=== PATIENT | female | born 1950 | race Caucasian/White ===

== ENCOUNTER 2017-02-26 09:51 | Outpatient (CLI) | payer MEDICARE, OTHER ==
--- NOTE | 2017-02-27 11:42 | Mammography Report ---
DIGITAL BILATERAL SCREENING MAMMOGRAM: 02/26/2017 CLINICAL HISTORY: A 66-year-old female in for routine screening mammogram. The patient has no family history of breast cancer. The patient has had no prior breast surgeries. COMPARISON: 05/17/2007, 11/29/2008, 09/28/2010, 09/19/2011, 11/23/2011, 11/03/2013, 07/19/2014. 11/25, 01/17/2016. TECHNIQUE: Craniocaudad and oblique lateral views of each breast were obtained with [employer] profile d igital mammography. FINDINGS: Heterogeneously dense breasts are noted bilaterally. No significant clusters of calcificat ion are seen. No significant masses are noted. No change is seen. IMPRESSION: THE BREASTS APPEAR RADIOGRAPHICALLY BENIGN. BIRADS CATEGORY 1-NEGATIVE. RECOMMENDATION: ANNUAL BILATERAL SCREENING MAMMOGRAPHY. STANDARD QUALIFYING STATEMENTS 1. This examination was reviewed with the aid of Computer-Aided Detection (CAD). 2. A negative or benign imaging report should not delay biopsy if clinically suspicious findings are present. Consider surgical consultation if warranted. More than 5% of cancers are not identified by i maging. 3. Dense breasts may obscure an underlying neoplasm. JOB #: [id number] EXT JOB #:[id number]
== END 2017-02-26 09:52 | disposition home or self-care (01) ==
LOC: DI 09:51
PROVIDERS: ATTEND Family Medicine
DX: Z12.31 Encounter for screening mammogram for malignant neoplasm of breast (principal)
CPT/HCPCS: 77067

== ENCOUNTER 2017-09-13 08:00 | Outpatient (CLI) | payer MEDICARE, OTHER ==
[2017-09-13 13:11] LABS: BASOPHILS # (AUTO) 0.1 10^3/uL (0.0-0.1); EOSINOPHILS # (AUTO) 0.2 10^3/uL (0.0-0.7); EOSINOPHILS % (AUTO) 3.5 %; HCT - HEMATOCRIT 45.1 % (37.0-47.0); HGB - HEMOGLOBIN 15.3 g/dL (12.0-16.0); LYMPHOCYTES # (AUTO) 1.7 10^3/uL (1.5-3.5); LYMPHOCYTES % (AUTO) 24.2 %; MEAN CORPUSCULAR HEMOGLOBIN 29.7 pg (27.0-31.0); MEAN CORPUSCULAR VOLUME 87.6 fL (81.0-99.0); MEAN PLATELET VOLUME 9.7 fL (7.9-10.8); MONOCYTES # (AUTO) 0.5 10^3/uL (0.0-1.0); MONOCYTES % (AUTO) 7.6 %; NEUTROPHILS # (AUTO) 4.4 10^3/uL (1.5-6.6); NEUTROPHILS % (AUTO) 63.7 %; NUCLEATED RED BLOOD CELLS AUTO 0.1 /100WBC; RED BLOOD COUNT 5.15 10^6/uL (4.20-5.40); UNCORRECTED WHITE BLOOD COUNT 6.9 x10^3/uL; WHITE BLOOD COUNT 6.9 x10^3/uL (4.8-10.8)
[2017-09-13 13:26] LABS: ALBUMIN/GLOBULIN RATIO 1.3 (1.0-2.2); BILIRUBIN,TOTAL 0.6 mg/dL (0.2-1.0); BUN - BLOOD UREA NITROGEN 14 mg/dL (6-20); CALCIUM 9.4 mg/dL (8.5-10.3); CARBON DIOXIDE - CO2 29 mmol/L (21-32); CHLORIDE 102 mmol/L (101-111); CHOL/HDL RATIO 3.9 (<4.4); CHOLESTEROL 253 mg/dL; CREATININE 0.8 mg/dL (0.4-1.0); GFR - MDRD 72 (>89); GLUCOSE 96 mg/dL (70-100); HDL CHOLESTEROL 65 mg/dL; LDL/HDL RATIO 2.3 (<4.4); POTASSIUM 3.5 mmol/L (3.5-5.0); SODIUM 140 mmol/L (135-145); TOTAL PROTEIN 6.9 g/dL (6.7-8.2); TRIGLYCERIDES 201 mg/dL; VLDL CHOLESTEROL 40 mg/dL
== END 2017-09-13 08:01 | disposition home or self-care (01) ==
LOC: LAB.WCP 08:00
PROVIDERS: ATTEND Family Medicine
DX: R73.01 Impaired fasting glucose (principal); I10 Essential (primary) hypertension; E78.5 Hyperlipidemia, unspecified
CPT/HCPCS: 36415; 80053; 80061; 85025

== ENCOUNTER 2018-03-13 09:12 | Outpatient (CLI) | payer MEDICARE, OTHER ==
[2018-03-13 13:15] LABS: ALBUMIN 3.7 g/dL (3.2-5.5); ALBUMIN/GLOBULIN RATIO 1.1 (1.0-2.2); ALKALINE PHOSPHATASE 59 IU/L (42-121); ALT ALANINE AMINOTRANSFERASE 23 IU/L (10-60); AST ASPARTATE AMINOTRANSFERASE 31 IU/L (10-42); BILIRUBIN,TOTAL 0.7 mg/dL (0.2-1.0); BUN - BLOOD UREA NITROGEN 12 mg/dL (6-20); CALCIUM 9.6 mg/dL (8.5-10.3); CARBON DIOXIDE - CO2 31 mmol/L (21-32); CHLORIDE 100 mmol/L (101-111); CHOLESTEROL 201 mg/dL; CREATININE 0.8 mg/dL (0.4-1.0); GFR - MDRD 71 (>89); GLUCOSE 101 mg/dL (70-100); HDL CHOLESTEROL 66 mg/dL; LDL CHOLESTEROL,CALCULATED 114 mg/dL; LDL/HDL RATIO 1.7 (<4.4); SODIUM 138 mmol/L (135-145); VLDL CHOLESTEROL 21 mg/dL
== END 2018-03-13 09:13 | disposition home or self-care (01) ==
LOC: LAB.WCP 09:12
PROVIDERS: ATTEND Family Medicine
DX: Z00.00 Encounter for general adult medical examination without abnormal findings (principal); E78.5 Hyperlipidemia, unspecified; I10 Essential (primary) hypertension; Z79.899 Other long term (current) drug therapy
CPT/HCPCS: 36415; 80053; 80061; 83721

== ENCOUNTER 2018-03-14 12:41 | Outpatient (CLI) | payer MEDICARE, OTHER ==
--- NOTE | 2018-03-17 17:30 | Mammography Report ---
DIGITAL SCREENING MAMMOGRAM: 03/14/2018 CLINICAL INDICATION: A 67-year-old for screening. COMPARISON: 02/2017, 01/2016, 11/2014, 07/2014, 10/2013, 09/2012, 09/2011, 09/2010. TECHNIQUE: Routine CC and MLO projections were obtained of the breasts. FINDINGS: Scattered fibroglandular tissue is present within the breasts. There are no dominant masses, suspicious microcalcifications, or secondary signs of malignancy. In comparison to the previous studies, there are no significant changes. ASSESSMENT: NO MAMMOGRAPHIC EVIDENCE OF MALIGNANCY. NO SIGNIFICANT INTERVAL CHANGES. RECOMMENDATION: Screening mammography is recommended annually. BIRADS category 1 - negative. STANDARD QUALIFYING STATEMENTS: 1. This examination was reviewed with the aid of Computed-Aided Detection (CAD). 2. A negative or benign imaging report should not delay biopsy if clinically suspicious findings are present. Consider surgical consultation if warranted. More than 5% of cancers are not identified by imaging. 3. Dense breasts may obscure an underlying neoplasm. TD: 03/17/2018 16:08
== END 2018-03-14 12:42 | disposition home or self-care (01) ==
LOC: DI 12:41
PROVIDERS: ATTEND Family Medicine
DX: Z12.31 Encounter for screening mammogram for malignant neoplasm of breast (principal)
CPT/HCPCS: 77067

== ENCOUNTER 2018-05-06 08:00 | Outpatient (CLI) | payer MEDICARE, OTHER ==
[2018-05-06 12:49] LABS: BASOPHILS # (AUTO) 0.1 10^3/uL (0.0-0.1); EOSINOPHILS # (AUTO) 0.2 10^3/uL (0.0-0.7); EOSINOPHILS % (AUTO) 3.3 %; HGB - HEMOGLOBIN 14.8 g/dL (12.0-16.0); LYMPHOCYTES # (AUTO) 1.6 10^3/uL (1.5-3.5); LYMPHOCYTES % (AUTO) 26.3 %; MEAN CORPUSCULAR HGB CONC 33.4 g/dL (32.0-36.0); MEAN CORPUSCULAR VOLUME 89.7 fL (81.0-99.0); MEAN PLATELET VOLUME 10.1 fL (7.9-10.8); MONOCYTES # (AUTO) 0.4 10^3/uL (0.0-1.0); MONOCYTES % (AUTO) 7.2 %; NEUTROPHILS # (AUTO) 3.8 10^3/uL (1.5-6.6); NEUTROPHILS % (AUTO) 62.2 %; PLT - PLATELET COUNT 256 10^3/uL (130-450); RED BLOOD COUNT 4.92 10^6/uL (4.20-5.40); RED CELL DISTRIBUTION WIDTH 14.1 % (12.0-15.0); WHITE BLOOD COUNT 6.1 x10^3/uL (4.8-10.8)
[2018-05-06 13:17] LABS: ALBUMIN 3.8 g/dL (3.2-5.5); ALBUMIN/GLOBULIN RATIO 1.3 (1.0-2.2); BILIRUBIN,TOTAL 0.7 mg/dL (0.2-1.0); CALCIUM 9.4 mg/dL (8.5-10.3); CREATININE 0.8 mg/dL (0.4-1.0); TOTAL PROTEIN 6.8 g/dL (6.7-8.2)
== END 2018-05-06 08:01 | disposition home or self-care (01) ==
LOC: LAB.WCP 08:00
PROVIDERS: ATTEND Family Medicine
DX: R10.11 Right upper quadrant pain (principal)
CPT/HCPCS: 36415; 80053; 83690; 85025

== ENCOUNTER 2018-05-09 07:31 | Outpatient (CLI) | payer MEDICARE, OTHER ==
[2018-05-09] MEDS ORDERED: IOPAMIDOL-300 100 ML VIAL ONE (07:52)
[2018-05-09] MEDS ORDERED: IOPAMIDOL-300 50 ML VIAL ONE (07:52)
[2018-05-09] MEDS ORDERED: IOPAMIDOL-300 100 ML VIAL IVP ONE (08:40)
[2018-05-09] MEDS ORDERED: IOPAMIDOL-300 50 ML VIAL PO ONE (08:40)
--- NOTE | 2018-05-09 16:34 | CT Report ---
Procedure Date: 05/09/2018 Accession Number: [id number] / [id number] Procedure: CT - Abdomen/Pelvis W/ CPT Code: FULL RESULT: EXAM: Abdomen/Pelvis W/ DATE: 05/09/2018 8:37 AM CLINICAL HISTORY: ABDOMINAL PAIN,RIGHT UPPER QUADRANT COMPARISON: None. TECHNIQUE: Routine helical CT imaging was performed through the abdomen and pelvis. IV contrast: 100 mL of Isovue 300. Enteric contrast: Yes. Reconstructions: Coronal and sagittal. In accordance with CT protocol optimization, one or more of the following dose reduction techniques were utilized for this exam: automated exposure control, adjustment of mA and/or KV based on patient size, or use of iterative reconstructive technique. FINDINGS: The patient is status post cholecystectomy. There is mild intrahepatic and extrahepatic biliary ductal dilation to 1.7 cm with a questionable subtle hypodensity at the choledochojejunal juncture. No definite choledocholithiasis is identified. The liver, spleen, adrenal glands, kidneys and pancreas are unremarkable. Abdominal vasculature is atherosclerotic, mild. There is no bowel obstruction. There is no lymphadenopathy. There is no free air or free fluid. There are uterine calcifications, likely fibroid. IMPRESSION: Extrahepatic and mild intrahepatic biliary ductal dilation, subjectively greater than expected for status post cholecystectomy. Question etiology at the distal CBD without definite visualization of a calculus. Recommend MRCP if warranted by correlation with laboratory values. RADIA
== END 2018-05-09 07:32 | disposition home or self-care (01) ==
LOC: DI 07:31
PROVIDERS: ATTEND Family Medicine
DX: R10.11 Right upper quadrant pain (principal)
CPT/HCPCS: 74177; Q9967

== ENCOUNTER 2018-05-22 07:39 | Outpatient (CLI) | payer MEDICARE, OTHER ==
--- NOTE | 2018-05-22 13:18 | MRI Report ---
Procedure Date: 05/22/2018 Accession Number: [id number] / [id number] Procedure: MRI - MRCP W/O CPT Code: FULL RESULT: EXAM: MR ABDOMEN WITHOUT CONTRAST (MR CHOLANGIOPANCREATOGRAPHY) EXAM DATE: 05/22/2018 08:46 AM. CLINICAL HISTORY: Dilated common bile duct, abdominal pain, right upper. COMPARISON: Abdomen/pelvis w/ 05/09/2018 8:33 AM. TECHNIQUE: Multiplanar breath-hold T1 and T2 sequences obtained through the abdomen on an MR scanner. Dedicated 2D and 3D MRCP sequences obtained through the biliary and pancreatic ducts. No intravenous contrast given. FINDINGS: Lung Bases: The lung bases are clear. Liver: The liver has normal size, morphology and signal. No evidence of solid mass. The intrahepatic bile ducts appear normal. Note is made of a small cyst in the right lobe. CBD: Extrahepatic biliary ductal dilation with mild intrahepatic biliary ductal dilation without strictures or filling defects to suggest calculi. The CBD at the level of its juncture with the normal-appearing pancreatic duct narrows smoothly, physiologic papilla favored versus subtle stricture. The CBD is 15 mm in diameter. Gallbladder: The gallbladder is surgically absent. Pancreas: The pancreas appears normal with no mass. The pancreatic duct measures 2.5 mm in diameter and appears normal with no stone or stricture. Spleen: The spleen appears normal. Kidneys and Adrenals: The kidneys appear normal with no mass or hydronephrosis. There are no cysts in the kidneys. The adrenals appear normal. Bowel: The small bowel and colon appear normal with no inflammation or obstruction. Retroperitoneum: The retroperitoneal structures appear normal with no mass or lymphadenopathy. IMPRESSION: No definite stricture or calculus is identified. Prominent CBD status post cholecystectomy may be a normal finding. If the patient has persistent right upper quadrant pain and elevated biliary markers and/or alkaline phosphatase, ERCP could be considered. RADIA
== END 2018-05-22 07:40 | disposition home or self-care (01) ==
LOC: DI 07:39
PROVIDERS: ATTEND Family Medicine
DX: K83.8 Other specified diseases of biliary tract (principal); R10.11 Right upper quadrant pain
CPT/HCPCS: 74181

== ENCOUNTER 2019-05-04 09:46 | Outpatient (CLI) | payer MEDICARE, OTHER ==
[2019-05-04 10:07] LABS: CREATININE 0.8 mg/dL (0.4-1.0)
[2019-05-04] MEDS ORDERED: IOVERSOL 320 100 ML VIAL IVP ONE ×2 (10:19→16:45)
--- NOTE | 2019-05-04 22:29 | CT Report ---
Reason: CONTINUED SWELLING PAIN IN LLE Procedure Date: 05/04/2019 Accession Number: [id number] / [id number] Procedure: CT - Abdomen/Pelvis W CPT Code: FULL RESULT: EXAM: CT ABDOMEN AND PELVIS EXAM DATE: 05/04/2019 10:51 AM. CLINICAL HISTORY: CONTINUED SWELLING PAIN IN LLE. COMPARISONS: ABDOMEN/PELVIS W/ 05/09/2018 8:33 AM. TECHNIQUE: Routine helical CT imaging was performed through the abdomen and pelvis. IV contrast: OPTI 320 100ML. Enteric contrast: No. Reconstructions: Coronal and sagittal. In accordance with CT protocol optimization, one or more of the following dose reduction techniques were utilized for this exam: automated exposure control, adjustment of mA and/or KV based on patient size, or use of iterative reconstructive technique. FINDINGS: Lung Bases: Unremarkable. Liver: Normal. No masses. Gallbladder/Bile Ducts: Gallbladder has been resected. There is persistent intra-and extrahepatic biliary ductal dilatation. There are no obstructing lesions. Spleen: Normal. Pancreas: Normal. Adrenal Glands: Normal. Kidneys: Normal. No masses or hydronephrosis. Peritoneal Cavity/Bowel: Normal. No free fluid, free air or adenopathy. No masses or acute inflammatory process. The appendix is well visualized and normal. There is a moderate amount of stool in the colon. There are no inflammatory changes. Pelvic Organs: The uterus is not enlarged. There is surgical clips or coils in the region of the right fallopian tube. Vasculature: The aortoiliac vessels are unremarkable. There is no evidence for clotting in the inferior vena cava nor the iliac vessels. There is, however, several small collateral vessels within the subcutaneous tissues over the anterior pelvis. Bones: No significant abnormality. Other: None. IMPRESSION: 1. Multiple small serpiginous vessels within the adipose tissue in the anterior abdomen. 2. Unremarkable aortoiliac vessels. No evidence for clot in the inferior vena cava nor the iliac vessels. No clot seen in the femoral veins. 3. Prior cholecystectomy. Persistent intra-and extra hepatic biliary ductal dilatation unchanged from the prior study. RADIA
== END 2019-05-04 09:47 | disposition home or self-care (01) ==
LOC: DI 09:46
PROVIDERS: ATTEND Nurse Practitioner Family
DX: R19.00 Intra-abdominal and pelvic swelling, mass and lump, unspecified site (principal); Z90.49 Acquired absence of other specified parts of digestive tract; M79.662 Pain in left lower leg
CPT/HCPCS: 36415; 74177; 82565; Q9967

== ENCOUNTER 2019-05-20 11:29 | Outpatient (CLI) | payer MEDICARE, OTHER ==
--- NOTE | 2019-05-21 09:34 | Mammography Report ---
Reason: SCREENING MAMMO Procedure Date: 05/20/2019 Accession Number: [id number] / [id number] Procedure: [facility] - Screening Mammo w/Karel CPT Code: FULL RESULT: EXAM: Screening Mammo w/Karel DATE: 05/20/2019 12:02 PM CLINICAL HISTORY: Screening encounter. History of early menses. Family history of breast cancer in the daughter at the age of 49. TECHNIQUE: (B) - Bilateral CC and MLO views were obtained. A left laterally exaggerated CC views obtained. COMPARISON: 03/14/2018 through 11/25/2014. PARENCHYMAL PATTERN: (D) - The breast(s) demonstrate(s) heterogeneously dense fibroglandular parenchyma. FINDINGS: There are no suspicious masses, calcifications, or areas of distortion. IMPRESSION: Negative examination. BI-RADS category 1. RECOMMENDATION: (ANNUAL) - Recommend routine annual screening mammography. BI-RADS CATEGORY: (1) - Negative. STANDARD QUALIFYING STATEMENTS: 1. This examination was not reviewed with the aid of Computer-Aided Detection (CAD). 2. A negative or benign imaging report should not preclude biopsy if clinically suspicious findings are present. 3. Dense breasts may obscure an underlying neoplasm. 4. This examination was reviewed with the aid of 3D breast imaging (tomosynthesis).
== END 2019-05-20 11:30 | disposition home or self-care (01) ==
LOC: DI 11:29
DX: Z12.31 Encounter for screening mammogram for malignant neoplasm of breast (principal); Z80.3 Family history of malignant neoplasm of breast
CPT/HCPCS: 77063; 77067